=== PATIENT | male | born 2000 | race Caucasian/White ===

== ENCOUNTER 2018-11-26 03:53 | Emergency (ER) | payer BC ==
[~2018-11-26] VITALS: Ht 185.4 cm; Wt 65.8 kg
[2018-11-26 04:09] VITALS: BP 112/64
== END 2018-11-26 05:01 | disposition home or self-care (01) ==
LOC: ER 03:53
DX: R21 Rash and other nonspecific skin eruption (principal); F41.9 Anxiety disorder, unspecified; F32.9 Major depressive disorder, single episode, unspecified; F10.10 Alcohol abuse, uncomplicated; Y90.9 Presence of alcohol in blood, level not specified; Z90.89 Acquired absence of other organs